=== PATIENT | male | born 1965 | race Asian ===

== ENCOUNTER 2020-03-01 20:33 | Inpatient (IN) ==
[2020-03-01 21:56] LABS: ABS Lymphocytes 0.4 10^3/ul (1.0-4.8); ABS Monocytes 0.5 10^3/ul (0-0.8); Hematocrit 35 % (42-52); Hemoglobin 12.1 g/dL (14.0-18.0); Lymphocyte % 7.4 %; Mean Corpuscular HGB Conc 34 g/dL (31-36); Mean Corpuscular Hemoglobin 32 pg (27-31); Mean Corpuscular Volume 94 fL (80-94); Mean Platelet Volume 7.7 fL (7.4-10.4); Platelet Count 220 10^3/uL (150-450); Red Blood Count 3.74 10^6 /uL (4.18-5.48); Red Cell Distribution Width 13 % (10-15); White Blood Count 5.9 10^3/uL (3.5-10.8)
[2020-03-01 22:03] LABS: INR 0.98 (0.82-1.09)
[2020-03-01 22:14] LABS: Albumin 3.6 g/dL (3.2-5.2); Albumin/Globulin Ratio 1.2 (1-3); BUN/Creatinine Ratio 15.2 (8-20); Calcium 8.5 mg/dL (8.6-10.3); EGFR African American 89.4 (>60); EGFR Non-African American 73.9 (>60); Potassium 3.9 mmol/L (3.5-5.0); Total Bilirubin 0.5 mg/dL (0.2-1.0); Total Protein 6.6 g/dL (6.4-8.9)
[2020-03-01 22:16] LABS: Troponin I 0.01 ng/mL (<0.03)
[2020-03-01 22:23] LABS: Influenza A Molecular Negative (Negative); Influenza B Molecular Negative (Negative)
[2020-03-01] MEDS ORDERED: NS 0.9% 1000 ml BAG 1,000 ML IV ONE (22:41)
[2020-03-01] MEDS ORDERED: Albuterol HFA INHALER 8 gm MDI INH ONE (22:41)
[2020-03-01] MEDS ORDERED: Iohexol 350 (CONTRAST) 500 ML MDV IV ONE (23:02)
[2020-03-02] MEDS ORDERED: Remdesivir 5 MG/ML LIQ IV Vial 200 MG in NS 0.9% 250 ml 210 ML IV ONE (04:00)
[2020-03-02] MEDS: Enoxaparin 40 MG/0.4 ML SYR SUBCUT SCH (05:15)
[2020-03-03] MEDS: Enoxaparin 40 MG/0.4 ML SYR SUBCUT SCH ×2 (02:56→22:36)
[2020-03-03] MEDS ORDERED: Remdesivir 5 MG/ML LIQ IV Vial 100 MG in NS 0.9% 250 ml 230 ML IV SCH (05:00)
[2020-03-03 08:18] LABS: ABS Lymphocytes 0.6 10^3/ul (1.0-4.8); ABS Monocytes 0.6 10^3/ul (0-0.8); ABS Neutrophils 4.2 10^3/ul (1.5-7.7); Hematocrit 36 % (42-52); Hemoglobin 12.5 g/dL (14.0-18.0); Lymphocyte % 11.9 %; Mean Corpuscular HGB Conc 34 g/dL (31-36); Mean Corpuscular Hemoglobin 32 pg (27-31); Mean Corpuscular Volume 94 fL (80-94); Mean Platelet Volume 7.7 fL (7.4-10.4); Platelet Count 262 10^3/uL (150-450); Red Blood Count 3.86 10^6 /uL (4.18-5.48); Red Cell Distribution Width 13 % (10-15); White Blood Count 5.4 10^3/uL (3.5-10.8)
[2020-03-03 08:27] LABS: BUN/Creatinine Ratio 16.3 (8-20); Calcium 8.8 mg/dL (8.6-10.3); EGFR African American 104.1 (>60); EGFR Non-African American 86.1 (>60); Potassium 4.3 mmol/L (3.5-5.0)
[2020-03-03] MEDS ORDERED: Influenza VAC *QUAD* 2020-21* 0.5 ML SYRINGE IM ONE (09:00)
[2020-03-03 11:00] LABS: Albumin 3.5 g/dL (3.2-5.2); Albumin/Globulin Ratio 1.3 (1-3); Globulin 2.8 g/dL (2-4); Indirect Bilirubin 0.3 mg/dL (0.3-1.0); Total Bilirubin 0.5 mg/dL (0.2-1.0); Total Protein 6.3 g/dL (6.4-8.9)
[2020-03-04 07:26] LABS: Albumin 3.2 g/dL (3.2-5.2); Albumin/Globulin Ratio 1.2 (1-3); BUN/Creatinine Ratio 22.1 (8-20); Calcium 8.8 mg/dL (8.6-10.3); EGFR African American 100.3 (>60); EGFR Non-African American 82.9 (>60); Globulin 2.6 g/dL (2-4); Potassium 4.1 mmol/L (3.5-5.0); Total Bilirubin 0.5 mg/dL (0.2-1.0); Total Protein 5.8 g/dL (6.4-8.9)
[2020-03-04 07:27] LABS: ABS Lymphocytes 0.7 10^3/ul (1.0-4.8); ABS Monocytes 0.6 10^3/ul (0-0.8); ABS Neutrophils 5.7 10^3/ul (1.5-7.7); Hematocrit 34 % (42-52); Hemoglobin 11.9 g/dL (14.0-18.0); Lymphocyte % 9.6 %; Mean Corpuscular HGB Conc 35 g/dL (31-36); Mean Corpuscular Hemoglobin 33 pg (27-31); Mean Corpuscular Volume 94 fL (80-94); Mean Platelet Volume 7.8 fL (7.4-10.4); Platelet Count 270 10^3/uL (150-450); Red Blood Count 3.62 10^6 /uL (4.18-5.48); Red Cell Distribution Width 13 % (10-15); White Blood Count 7.1 10^3/uL (3.5-10.8)
[2020-03-04] MEDS: Enoxaparin 40 MG/0.4 ML SYR SUBCUT SCH ×2 (07:36→21:09)
[2020-03-05 07:25] LABS: ABS Lymphocytes 0.6 10^3/ul (1.0-4.8); ABS Monocytes 0.8 10^3/ul (0-0.8); ABS Neutrophils 5.6 10^3/ul (1.5-7.7); Hematocrit 35 % (42-52); Hemoglobin 11.8 g/dL (14.0-18.0); Lymphocyte % 8.5 %; Mean Corpuscular HGB Conc 34 g/dL (31-36); Mean Corpuscular Hemoglobin 32 pg (27-31); Mean Corpuscular Volume 94 fL (80-94); Mean Platelet Volume 7.9 fL (7.4-10.4); Platelet Count 304 10^3/uL (150-450); Red Blood Count 3.68 10^6 /uL (4.18-5.48); Red Cell Distribution Width 13 % (10-15)
[2020-03-05 07:36] LABS: Albumin 3.1 g/dL (3.2-5.2); Albumin/Globulin Ratio 1.1 (1-3); BUN/Creatinine Ratio 19.6 (8-20); C Reactive Protein 5.4 mg/L (<8.01); Calcium 8.8 mg/dL (8.6-10.3); EGFR African American 92.4 (>60); EGFR Non-African American 76.4 (>60); Globulin 2.7 g/dL (2-4); Potassium 4.1 mmol/L (3.5-5.0); Total Bilirubin 0.6 mg/dL (0.2-1.0); Total Protein 5.8 g/dL (6.4-8.9)
[2020-03-05] MEDS: Enoxaparin 40 MG/0.4 ML SYR SUBCUT SCH (08:50)
[2020-03-05 15:09] VITALS: BP 106/68
== END 2020-03-05 17:45 | disposition home or self-care (01) | DRG 137 ==
LOC: ED 20:33 → MED 03-02 01:10
PROVIDERS: ADMIT Hospitalist; ATTEND Pediatrics